=== PATIENT | female | born 1980 | race Two or more races ===

== ENCOUNTER 2024-01-03 10:13 | Inpatient (IN) ==
[2024-01-03 12:06] LABS: Platelet Count 328 K/uL (130-400); White Blood Count 6.92 K/ul (4.8-10.8)
[2024-01-03 12:07] LABS: Mean Corpuscular Hemoglobin 14.5 pg (25.0-34.0); Mean Corpuscular Hgb Conc 25.3 g/dL (32.0-36.0); Mean Corpuscular Volume 57.5 fL (80.0-100.0); Partial Thromboplastin Ratio 0.9; Partial Thromboplastin Time 25 Seconds (21-31); Prothrombin Time 11.3 Seconds (9.0-12.0); RDW Coefficient of Variation 20.7 % (11.5-14.5); RDW Standard Deviation 39.5 fL (36.4-46.3); Red Blood Count 4.75 M/uL (4.20-5.40)
[2024-01-03 12:28] LABS: Albumin Level 4.6 gm/dl (3.4-5.0); Anion Gap 7 (3-11); Bilirubin,Total 0.9 mg/dl (0.2-1.0); Calcium 9.3 mg/dl (8.6-10.3); Carbon Dioxide 23 mmol/L (21-32); Chloride 106 mmol/L (98-107); Potassium 3.5 mmol/L (3.5-5.1); Sodium 136 mmol/L (136-145)
[2024-01-03 12:33] LABS: Anisocytosis Present; Basophils # (auto) 0.05 K/uL (0.00-0.20); Basophils % (auto) 0.7 %; Eosinophils # (auto) 0.06 K/uL (0.00-0.50); Eosinophils % (auto) 0.9 %; Hypochromasia Present; Immature Granulocytes # (auto) 0.03 K/uL (0.01-0.20); Immature Granulocytes % (auto) 0.4 %; Lymphocytes # (auto) 2.14 K/uL (1.20-3.40); Lymphocytes % (auto) 30.9 %; Microcytosis Present; Monocytes # (auto) 0.47 K/uL (0.11-0.59); Monocytes % (auto) 6.8 %; Neutrophils # (auto) 4.17 K/uL (1.40-6.50); Neutrophils % (auto) 60.3 %; Polychromasia 1+; Tear Drop Cells 1+
[2024-01-03 12:34] LABS: Alanine Aminotransferase 52 U/L (7-52); Albumin Globulin Ratio 1.4 (0.9-2); Alkaline Phosphatase 84 U/L (34-104); Aspartate Aminotransferase 38 U/L (13-39); BUN Creatinine Ratio 25.7 (10-20); Blood Urea Nitrogen 9 mg/dl (6-23); Est GFR (African American) > 150.0 ml/min; Est GFR (Non-African American) 135.2 ml/min; Globulin 3.3 gm/dl (2.5-4.0); Glucose 104 mg/dl (70-99(Fasting)); Total Protein 7.9 gm/dl (6.0-8.3)
[2024-01-03 12:37] LABS: Hematocrit (blood only) 27.3 % (37.0-47.0); Hemoglobin 6.9 g/dl (12.0-16.0)
--- NOTE | 2024-01-03 13:57 | Emergency Department Note ---
Impression & Plan Severe anemia ED Provider Note NAME: IDALIA JACKSON AGE: 43 SEX: Female INFORMANT: Patient through the geochemical manager service ED PROVIDER(S): Neo Ellis MD CHIEF COMPLAINT: Anemia PLAN: Disposition: Admitted Outpatient prescription management: none Referral: None MEDICAL DECISION MAKING: Patient presented because of anemia. This was confirmed on laboratory testing here. She denies any active source of bleeding. Hemodynamically she is stable. Patient is in the room needing a blood transfusion. Because of the lower abdominal pain she underwent CT imaging. CT imaging revealed the presence of multiple large fibroids. I suspect that this is the contributing issue. Consultation was made with Dr. Hart of [facility]. She did evaluate the images and will consult on the patient. I did consult with the [facility] hospitalist service. Patient will be evaluated admitted for further management. [facility] did request pelvic ultrasound and this was ordered. I did use a geochemical manager service several times for the encounter including the consent for blood transfusion. All risk and benefits were discussed with the geochemical manager service. Patient was typed and crossed for 2 units of blood. I refer you to the EMR for further details. Care/management discussed with: store loss prevention manager Level of care consideration(s): After review of the information above and other included data, I feel the patient requires escalation of care to admission Triage Nursing notes: reviewed and agree them. Vital Signs: reviewed and remarkable for no significant abnormalities Additional History obtained from: none Chronic Medical/Social Conditions affecting care: none Prior/ Outside/ External records reviewed: none Differential Diagnosis: Anemia, marrow failure, uterine bleeding, diverticulosis, AVM, coagulopathy, colitis, inflammatory bowel disease, malignancy, Elsa-Berg tear, esophagitis, peptic ulcer disease, variceal bleed, gastritis, epistaxis, fissure, hemorrhoids, as well as other pathologies. Diagnostics, independently interpreted by me: ECG: none Cardiac Monitoring: none Medical decision rules: none Imaging studies: CT scan reveals multiple. Uterine masses. I refer you to the EMR for further details. HPI: 43 year old Female arrives for evaluation of anemia. This was found on outpatient labs yesterday and was noted to be hemoglobin of 6. The patient also notes the following associated symptoms, right lower quadrant abdominal pain. The patient has been prescribed no medication for relieving factors. Current pain is rated as 6/10. Pt denies LOC, headache, fevers, chills, diaphoresis, visual changes, neck pain, chest pain, breathing difficulties, nausea, vomiting, heavy vaginal bleeding, nosebleeds, back pain, melena, hematochezia, urinary symptoms, numbness, weakness, lymphadenopathy, rash, or other complaints. PAST MEDICAL HISTORY: See Below, postoperative bleeding after PAST SURGICAL HISTORY: , see below SOCIAL HISTORY: See Below, HOME MEDICATIONS: See Below ALLERGIES: See Below VITALS: See Below PHYSICAL EXAMINATION: GENERAL: Awake, alert, well-appearing, in no distress HENT: Normocephalic, atraumatic. Oropharynx unremarkable. EYES: Pale conjunctiva. Sclera non-icteric. NECK: Inspection normal. Non-tender. Supple. No nuchal rigidity. FROM. No masses. RESPIRATORY: Clear to auscultation. No wheezes. No rales. Normal respiratory effort. CARDIAC: Normal rate. Normal rhythm. No murmurs. No rubs. Extremities warm and well perfused. Pulses equal. No JVD. GI: Soft, non-distended. No tenderness to palpation. No rebound or guarding. No masses. RECTAL: Deferred. MUSCULOSKELETAL: Atraumatic. Chest examination reveals no tenderness. The back is symmetrical on inspection without obvious abnormality. There is no CVA tenderness to palpation. No joint edema. LOWER EXTREMITIES: Calves are equal size bilaterally and non-tender. No edema. No discoloration. NEURO: Normal sensorium. No sensory or motor deficits noted. SKIN: No rash or jaundice noted. PROCEDURES: none CRITICAL CARE: I have personally spent 35 minutes of critical care time in the direct management of this patient. This includes bedside care, interpretation of diagnostic studies, and testing, discussion with consultants, patient, and family members, utilizing geochemical manager services, and other required patient management activities. These minutes are in excess of all separately billable procedures. OBSERVATION NOTE: none Past Med/Surg History Medical History (Updated 01/03/24 @ 15:46 by Nataliia Mccoy PA-C) No pertinent past medical history Surgical History (Updated 01/03/24 @ 15:46 by Nataliia Mccoy PA-C) Hx of hand surgery Hx of section Family History (Updated 01/03/24 @ 15:47 by Nataliia Mccoy PA-C) Mother Hypertension Sister Anemia Social History (Updated 01/03/24 @ 15:45 by Nataliia Mccoy PA-C) Smoking Status: Never smoker Hx Alcohol Use: No Hx Substance Use: No Preferred Language: Omani Communication Tools: IPad marital status: Current Living Situation: Spouse and Family Current Living Situation Comment: lives with 2 children Allergies Allergies Allergy/AdvReac Type Severity Reaction Status Date / Time No Known Allergies Unverified 02/25/10 06:51 Home Meds Home Medications Medication Instructions Recorded Confirmed Multivit/Min/Iron/Fol Ac/Pren 1 tab PO DAILY ##0 02/25/10 ( Vitamin) Ibuprofen (Motrin) 600 mg PO Q6HR ##0 02/28/10 Oxycodone/Acetaminophen (Percocet 1 - 2 tabs PO Q6HR PRN ##0 02/28/10 Unknown Dose) Results & Data (ED) Vital Signs Vital Signs - 24 hr 01/03/24 10:45 01/03/24 12:47 01/03/24 13:19 Temperature 36.5 C Temperature Source Temporal Artery Scan Pulse Rate 84 70 Pulse Rate [Apical] 63 Pulse Rate from SpO2 Sensor 68 Respiratory Rate 20 18 17 Respiratory Effort / Characteristics Non-Labored Spontaneous Non-Labored Spontaneous Respiratory Depth Normal Normal Respiratory Pattern Regular Blood Pressure 105/62 Blood Pressure [Left Arm] 109/73 Blood Pressure Mean 76 Blood Pressure Mean [Left Arm] 85 Blood Pressure Position [Left Arm] Lying Pulse Oximetry 100 100 100 Oxygen Delivery Method Room Air Sepsis Recent Fever Within 48 Hours No Sepsis New/Unexplained Change in Mental Status N/A Sepsis Action Taken by Nursing No Action Required 01/03/24 13:20 01/03/24 13:30 01/03/24 13:30 Temperature Temperature Source Pulse Rate 78 65 Pulse Rate [Apical] Pulse Rate from SpO2 Sensor 75 64 Respiratory Rate 22 18 Respiratory Effort / Characteristics Respiratory Depth Respiratory Pattern Blood Pressure 99/60 L Blood Pressure [Left Arm] Blood Pressure Mean 75 Blood Pressure Mean [Left Arm] Blood Pressure Position [Left Arm] Pulse Oximetry 100 100 Oxygen Delivery Method Sepsis Recent Fever Within 48 Hours Sepsis New/Unexplained Change in Mental Status Sepsis Action Taken by Nursing 01/03/24 13:40 01/03/24 13:50 01/03/24 14:00 Temperature Temperature Source Pulse Rate 62 74 77 Pulse Rate [Apical] Pulse Rate from SpO2 Sensor 64 75 Respiratory Rate 17 28 H Respiratory Effort / Characteristics Respiratory Depth Respiratory Pattern Blood Pressure Blood Pressure [Left Arm] Blood Pressure Mean Blood Pressure Mean [Left Arm] Blood Pressure Position [Left Arm] Pulse Oximetry 100 100 Oxygen Delivery Method Sepsis Recent Fever Within 48 Hours Sepsis New/Unexplained Change in Mental Status Sepsis Action Taken by Nursing 01/03/24 14:00 01/03/24 14:00 01/03/24 14:10 Temperature Temperature Source Pulse Rate 67 99 H Pulse Rate [Apical] Pulse Rate from SpO2 Sensor 68 100 H Respiratory Rate 16 22 Respiratory Effort / Characteristics Respiratory Depth Respiratory Pattern Blood Pressure 101/64 Blood Pressure [Left Arm] Blood Pressure Mean 84 Blood Pressure Mean [Left Arm] Blood Pressure Position [Left Arm] Pulse Oximetry 100 100 Oxygen Delivery Method Sepsis Recent Fever Within 48 Hours Sepsis New/Unexplained Change in Mental Status Sepsis Action Taken by Nursing 01/03/24 14:20 01/03/24 14:30 01/03/24 14:30 Temperature Temperature Source Pulse Rate 85 78 Pulse Rate [Apical] Pulse Rate from SpO2 Sensor 83 81 Respiratory Rate 21 Respiratory Effort / Characteristics Respiratory Depth Respiratory Pattern Blood Pressure 128/82 Blood Pressure [Left Arm] Blood Pressure Mean 92 Blood Pressure Mean [Left Arm] Blood Pressure Position [Left Arm] Pulse Oximetry 100 100 Oxygen Delivery Method Sepsis Recent Fever Within 48 Hours Sepsis New/Unexplained Change in Mental Status Sepsis Action Taken by Nursing 01/03/24 14:49 01/03/24 14:50 01/03/24 15:00 Temperature Temperature Source Pulse Rate 76 77 78 Pulse Rate [Apical] Pulse Rate from SpO2 Sensor Respiratory Rate 16 18 Respiratory Effort / Characteristics Respiratory Depth Respiratory Pattern Blood Pressure Blood Pressure [Left Arm] Blood Pressure Mean Blood Pressure Mean [Left Arm] Blood Pressure Position [Left Arm] Pulse Oximetry Oxygen Delivery Method Sepsis Recent Fever Within 48 Hours Sepsis New/Unexplained Change in Mental Status Sepsis Action Taken by Nursing 01/03/24 15:10 Temperature Temperature Source Pulse Rate 71 Pulse Rate [Apical] Pulse Rate from SpO2 Sensor Respiratory Rate 20 Respiratory Effort / Characteristics Respiratory Depth Respiratory Pattern Blood Pressure Blood Pressure [Left Arm] Blood Pressure Mean Blood Pressure Mean [Left Arm] Blood Pressure Position [Left Arm] Pulse Oximetry Oxygen Delivery Method Sepsis Recent Fever Within 48 Hours Sepsis New/Unexplained Change in Mental Status Sepsis Action Taken by Nursing Laboratory Data 01/03/24 11:20 01/03/24 11:20 Lab Results 01/03/24 01/03/24 01/03/24 Range/Units 11:20 11:29 15:02 WBC 6.92 (4.8-10.8) K/ul RBC 4.75 (4.20-5.40) M/uL Hgb 6.9 L* (12.0-16.0) g/dl Hct 27.3 L (37.0-47.0) % MCV 57.5 L (80.0-100.0) fL MCH 14.5 L (25.0-34.0) pg MCHC 25.3 L (32.0-36.0) g/dL RDW Std Deviation 39.5 (36.4-46.3) fL RDW Coeff of Nahid 20.7 H (11.5-14.5) % Plt Count 328 (130-400) K/uL Immature Gran % (Auto) 0.4 % Neut % (Auto) 60.3 % Lymph % (Auto) 30.9 % [place] % (Auto) 6.8 % Eos % (Auto) 0.9 % Baso % (Auto) 0.7 % Reticulocyte % (Auto) 2.07 H (0.50-2.00) % Neut # (Auto) 4.17 (1.40-6.50) K/uL Lymph # (Auto) 2.14 (1.20-3.40) K/uL [place] # (Auto) 0.47 (0.11-0.59) K/uL Eos # (Auto) 0.06 (0.00-0.50) K/uL Baso # (Auto) 0.05 (0.00-0.20) K/uL Reticulocyte # 0.100 (0.020-0.100) 10^6/uL Immature Gran # (Auto) 0.03 (0.01-0.20) K/uL Polychromasia 1+ Hypochromasia Present Anisocytosis Present Microcytosis Present Tear Drop Cells 1+ PT 11.3 (9.0-12.0) Seconds INR 1.0 (0.9-1.1) APTT 25 (21-31) Seconds PTT Ratio 0.9 Sodium 136 (136-145) mmol/L Potassium 3.5 (3.5-5.1) mmol/L Chloride 106 (98-107) mmol/L Carbon Dioxide 23 (21-32) mmol/L Anion Gap 7 (3-11) BUN 9 (6-23) mg/dl Creatinine 0.35 L (0.6-1.2) mg/dl Est GFR ( Amer) > 150.0 ml/min Est GFR (Non-Af Amer) 135.2 ml/min BUN/Creatinine Ratio 25.7 H (10-20) Glucose 104 H (70-99(Fasting)) mg/dl Calcium 9.3 (8.6-10.3) mg/dl Total Bilirubin 0.9 (0.2-1.0) mg/dl AST 38 (13-39) U/L ALT 52 (7-52) U/L Alkaline Phosphatase 84 (34-104) U/L Total Protein 7.9 (6.0-8.3) gm/dl Albumin 4.6 (3.4-5.0) gm/dl Globulin 3.3 (2.5-4.0) gm/dl Albumin/Globulin Ratio 1.4 (0.9-2) HCG, Qual Negative (Negative) Blood Type O Positive Blood Type Recheck O Positive Antibody Screen NEGATIVE Crossmatch See Detail Administered Medications Discontinued Medications Ioversol (Optiray 320 100ml) 93 ml IV ONCE ONE Stop: 01/03/24 14:46 Last Admin: 01/03/24 14:45 Dose: 93 ml Documented By: LUC Imaging Data Radiologist's Impression: Abdomen/Pelvis CT 01/03/24 14:[address] WITH IV CONTRAST CT DOSE: 583.12 mGy.cm HISTORY: RLQ pain., low hgb TECHNIQUE: Multiaxial CT images of the abdomen and pelvis were performed following the use of intravenous contrast. A dose lowering technique was utilized adhering to the principles of ALARA. COMPARISON STUDY: None. FINDINGS: The lung bases are clear. No pneumoperitoneum. No pneumatosis. No acute fractures. Tiny fat-containing umbilical hernia. The liver, gallbladder, pancreas, spleen, adrenal glands, and right kidney are unremarkable. There is a 4 mm hypodensities within the left kidney. This is technically too small to characterize but favors a cyst. No hydronephrosis. The main portal vein is patent. Normal caliber abdominal aorta. No retroperitoneal hematoma. No abdominal or pelvic lymphadenopathy. The bladder is unremarkable. Bilateral ovarian cysts with the largest on the left measuring 3.5 cm. There are 3 similar-appearing heterogeneous uterine masses. These favor fibroids. Dominant central mass measures 6.6 x 7.0 cm and distorts the endometrium. Therefore, this likely represents a submucosal fibroid. Trace pelvic free fluid. This is likely physiologic. A few colonic diverticula. No evidence for acute diverticulitis. No bowel wall thickening or obstruction. Normal appendix. IMPRESSION: 1. There are 3 similar-appearing heterogeneous uterine masses which favor fibroids. Dominant mass measures 7.0 x 6.6 cm and distorts the endometrium. Therefore, this favors a submucosal fibroid. Follow-up nonemergent gynecologic consultation recommended. 2. No bowel wall thickening or obstruction. 3. Colonic diverticulosis. No evidence for acute diverticulitis. 4. No retroperitoneal hematoma. ACT 112: Negative or not required by law. Electronically signed by: Hammad Cruz M.D. 01/03/2024 3:04 PM Discharge Plan Visit Data Chief Complaint: Referred by Doctor Stated Complaint: BLOOD TRANSFUSION?, DOC REF ED Provider: Neo Ellis Discharge Problem: Severe anemia Forms Stand Alone Forms: My [facility] Referrals Referrals: PCP,NO [Primary Care Provider] -
[2024-01-03 14:27] LABS: Reticulocyte % 2.07 % (0.50-2.00)
[2024-01-03 14:35] LABS: Pregnancy Test, Serum Negative (Negative)
[2024-01-03] MEDS: OPTIRAY 320 100ml IV ONE (14:45)
[2024-01-03] MEDS ORDERED: SODIUM CHLORIDE 0.9% 250 ML IV PRN ×2 (15:05→16:06)
--- NOTE | 2024-01-03 15:05 | CT Scan Report ---
ABDOMEN AND PELVIS CT WITH IV CONTRAST CT DOSE: 583.12 mGy.cm HISTORY: RLQ pain., low hgb TECHNIQUE: Multiaxial CT images of the abdomen and pelvis were performed following the use of intrave nous contrast. A dose lowering technique was utilized adhering to the principles of ALARA. COMPARISON STUDY: None. FINDINGS: The lung bases are clear. No pneumoperitoneum. No pneumatosis. No acute fractures. Tiny fat -containing umbilical hernia. The liver, gallbladder, pancreas, spleen, adrenal glands, and right kid keshav are unremarkable. There is a 4 mm hypodensities within the left kidney. This is technically too s mall to characterize but favors a cyst. No hydronephrosis. The main portal vein is patent. Normal tania iber abdominal aorta. No retroperitoneal hematoma. No abdominal or pelvic lymphadenopathy. The bladde r is unremarkable. Bilateral ovarian cysts with the largest on the left measuring 3.5 cm. There are 3 similar-appearing heterogeneous uterine masses. These favor fibroids. Dominant central mass measures 6.6 x 7.0 cm and distorts the endometrium. Therefore, this likely represents a submucosal fibroid. T race pelvic free fluid. This is likely physiologic. A few colonic diverticula. No evidence for acute diverticulitis. No bowel wall thickening or obstruction. Normal appendix. IMPRESSION: 1. There are 3 similar-appearing heterogeneous uterine masses which favor fibroids. Dominant mass abel sures 7.0 x 6.6 cm and distorts the endometrium. Therefore, this favors a submucosal fibroid. Follow- up nonemergent gynecologic consultation recommended. 2. No bowel wall thickening or obstruction. 3. Colonic diverticulosis. No evidence for acute diverticulitis. 4. No retroperitoneal hematoma. ACT 112: Negative or not required by law. Electronically signed by: Hammad Cruz M.D. 01/03/2024 3:04 PM
--- NOTE | 2024-01-03 15:35 | History & Physical Report ---
Date of Service January 03, 2024 History of Present Illness Primary Care Provider: NO PCP This is a 48 year old female who has no significant past medical history of presents to ED 2/2 referral PCP for low hemoglobin. She is burkinan speaking and education rep services were used. They did blood work as an outpatient and I was sent here because my blood work was low. She had blood work done yesterday. She has been having pain in her RLQ. She has been having this pain for 2-3 months. It comes and goes. Allergies Allergy/AdvReac Type Severity Reaction Status Date / Time No Known Allergies Unverified 02/25/10 06:51 Past Med/Surg History Social History Smoking Status: Never smoker Preferred Language: Nepali Communication Tools: IPad Results & Data Results & Data Vital Signs (Past 12 Hours) Vital Signs Temp Pulse Pulse Resp BP BP Pulse Ox 01/03/24 15:10 71 20 01/03/24 15:00 78 18 01/03/24 14:50 77 01/03/24 14:49 76 16 01/03/24 14:30 128/82 01/03/24 14:30 78 100 01/03/24 14:20 85 21 100 01/03/24 14:10 99 H 22 100 01/03/24 14:00 67 16 100 01/03/24 14:00 101/64 01/03/24 14:00 77 01/03/24 13:50 74 28 H 100 01/03/24 13:40 62 17 100 01/03/24 13:30 99/60 L 01/03/24 13:30 65 18 100 01/03/24 13:20 78 22 100 01/03/24 13:19 70 17 100 01/03/24 12:47 63 18 109/73 100 01/03/24 10:45 36.5 C 84 20 105/62 100 O2 Del Method 01/03/24 15:10 01/03/24 15:00 01/03/24 14:50 01/03/24 14:49 01/03/24 14:30 01/03/24 14:30 01/03/24 14:20 01/03/24 14:10 01/03/24 14:00 01/03/24 14:00 01/03/24 14:00 01/03/24 13:50 01/03/24 13:40 01/03/24 13:30 01/03/24 13:30 01/03/24 13:20 01/03/24 13:19 01/03/24 12:47 Room Air 01/03/24 10:45
--- NOTE | 2024-01-03 16:03 | History & Physical Report ---
Date of Service January 03, 2024 Assessment & Plan (1) Severe anemia: (2) Iron deficiency anemia: Plan: Patricia Do is a 43yo Puerto Rican-speaking F with no significant PMH who presented to the ED via referral by [email or web address] for evaluation of new-on set severe anemia discovered on CBC results, which was performed yesterday by the clinic (Hgb of 6). CBC in ED revealed microcytic, hypochromic severe anemia and tear drop cells. -Order peripheral smear, anemia work-up, ferritin level 2, consider iron transfusion in future. -Transfusion coordinated by Dr. Ellis in the ED; pt typed and crossed for 2 units of blood. -Order fecal occult stool, r/o GI bleed (3) Right lower quadrant abdominal pain: Plan: CT of abdomen/pelvis performed in the ED revealed 3 similar-looking uterine masses, favoring fibroids. Corresponding fibroid discovery on pelvic U/S findings, the largest of which is a 6.9cm left fundal fibroid. No acute hemorrhage noted. -Consult [facility]. ED provider spoke with BELT LACER - Plan is for pt to undergo outpatient robotic procedure for fibroid removal. -Follow urine DVT Prophylaxis: SCDs Code Status: Full Code PCP: None Dispo: Admit to Med/Surg w/ Telemetry Patient seen in collaboration with Dr. Fernandes. Please see addendum. I spent a total of 75 minutes coordinating, documenting, and providing care for this patient excluding time spent in the performance of separately billed services. This included personally reviewing all current laboratories and imaging studies, medical reconciliation, outpatient chart review and discussion with specialists. History of Present Illness Chief Complaint: Severe Anemia Primary Care Provider: NO PCP Patricia Do is a 43yo [place] Rican-speaking F with no significant PMH who presented to the ED via referral by [facility] for evaluation of new- onset severe anemia discovered on CBC results, which was performed yesterday by the clinic (Hgb of 6). History obtained from the patient, who is accompanied by her , and available records in [facility]; utility forester was utilized for the entire gathering of information. Patient states that she was called and instructed to report to the ED today since her Hgb result from the clinic was significantly low, thus warranting further investigation. Patient reports that she has been experiencing pain in her lower right abdominal quadrant for the past approximately 2-3 months. Patient reports that the pain is fleeting, and tends to come and go in waves. She describes the pain in her lower right abdominal quadrant as more of a dull sensation typically, but has experienced t imes when the pain tends to become sharp in intensity whilst urinating. Patient states that she does not feel this specific abdominal pain every time she urinates, only once in a while it will occur. Patient denies any hematuria, burning sensation whilst urinating or changes in urinary habits. Patient did allude to pain in her right flank region that also occurs intermittently, sometimes occurring the same time as the lower right quadrant abdominal pain. Patient describes the flank pain as dull/achy in quality. Patient denies being prescribed any medications to alleviate either sources of pain. She does report occasional nausea and constipation, but denies taking any OTC or prescription medications for these concerns at home. Patient denies any episodes of vomiting, diarrhea, or hematochezia. Patient reports that she is currently not taking any forms of hormonal control, and denies any significant changes in the flow/frequency of her menstrual cycles. Patient reports using approximately 10- 12 pads/day when she is menstruating; however, she denies any abnormal vaginal bleeding or any active source of bleeding at this time. Patient denies any fevers, body chills/aches, recent illnesses, generalized weakness and fatigue. Allergies Allergy/AdvReac Type Severity Reaction Status Date / Time No Known Allergies Unverified 01/03/24 16:51 Home Medications Medication Instructions Recorded Confirmed Type ascorbic acid (vitamin C) 250 mg 0 mg PO DAILY 01/03/24 01/03/24 History tablet (Vitamin C) Past Med/Surg History Medical History No pertinent past medical history Surgical History Hx of hand surgery Hx of section Family History Mother Hypertension Sister Anemia Social History Smoking Status: Never smoker Hx Alcohol Use: No Hx Substance Use: No Preferred Language: Puerto Rican Communication Tools: IPad marital status: Current Living Situation: Spouse and Family Current Living Situation Comment: lives with 2 children Review of Systems Review of Systems: At least ten systems reviewed and negative, except as noted in the HPI. Physical Exam Physical Exam: General Appearance: WD/WN, vitals as above, NAD, sitting up in bed, pleasant, conversing easily with assistance of utility forester. Head: Normocephalic, atraumatic Eyes: Normal inspection, PERRL, conjunctivae normal, anicteric sclerae ENT: External ear and nose normal, oropharynx normal Neck: Normal visual inspection, trachea midline, no thyromegaly Respiratory: Normal respiratory effort, lungs clear to auscultation, no wheeze, rales, rhonchi. No accessory muscle use. Cardiovascular: Regular rate, rhythm, no murmur, normal peripheral pulses, no BLE edema. Vessels: No JVD Chest: Normal inspection of chest Abdomen/GI: Normal bowel sounds, soft, nontender, no hepatosplenomegaly Extremities/Musculoskeletal: No cyanosis or clubbing, extremities motor strength 5/5 Neurologic: PERRL, EOMI, accommodation nl, no face palsy, no dysarthria, CN's II-XI intact bilaterally and moves all extremities Psychiatric: A+Ox3, euthymic affect Skin: No rashes, normal color, warm/dry Results & Data Results & Data Vital Signs (Past 12 Hours) Vital Signs Temp Pulse Pulse Resp BP BP Pulse Ox 01/03/24 15:10 71 20 01/03/24 15:00 78 18 01/03/24 14:50 77 01/03/24 14:49 76 16 01/03/24 14:30 128/82 01/03/24 14:30 78 100 01/03/24 14:20 85 21 100 01/03/24 14:10 99 H 22 100 01/03/24 14:00 67 16 100 01/03/24 14:00 101/64 01/03/24 14:00 77 01/03/24 13:50 74 28 H 100 01/03/24 13:40 62 17 100 01/03/24 13:30 99/60 L 01/03/24 13:30 65 18 100 01/03/24 13:20 78 22 100 01/03/24 13:19 70 17 100 01/03/24 12:47 63 18 109/73 100 01/03/24 10:45 36.5 C 84 20 105/62 100 O2 Del Method 01/03/24 15:10 01/03/24 15:00 01/03/24 14:50 01/03/24 14:49 01/03/24 14:30 01/03/24 14:30 01/03/24 14:20 01/03/24 14:10 01/03/24 14:00 01/03/24 14:00 01/03/24 14:00 01/03/24 13:50 01/03/24 13:40 01/03/24 13:30 01/03/24 13:30 01/03/24 13:20 01/03/24 13:19 01/03/24 12:47 Room Air 01/03/24 10:45 Laboratory Results Short CBC 01/03/24 Range/Units 11:20 WBC 6.92 (4.8-10.8) K/ul Hgb 6.9 L* (12.0-16.0) g/dl Hct 27.3 L (37.0-47.0) % Plt Count 328 (130-400) K/uL BMP 01/03/24 11:20 Sodium 136 Potassium 3.5 Chloride 106 Carbon Dioxide 23 BUN 9 Creatinine 0.35 L Glucose 104 H Calcium 9.3 Liver Function 01/03/24 Range/Units 11:20 Total Bilirubin 0.9 (0.2-1.0) mg/dl AST 38 (13-39) U/L ALT 52 (7-52) U/L Alkaline Phosphatase 84 (34-104) U/L Albumin 4.6 (3.4-5.0) gm/dl Diagnostic Findings Abdomen/Pelvis CT 01/03/24 14:[address] WITH IV CONTRAST CT DOSE: 583.12 mGy.cm HISTORY: RLQ pain., low hgb TECHNIQUE: Multiaxial CT images of the abdomen and pelvis were performed following the use of intravenous contrast. A dose lowering technique was utilized adhering to the principles of ALARA. COMPARISON STUDY: None. FINDINGS: The lung bases are clear. No pneumoperitoneum. No pneumatosis. No acute fractures. Tiny fat-containing umbilical hernia. The liver, gallbladder, pancreas, spleen, adrenal glands, and right kidney are unremarkable. There is a 4 mm hypodensities within the left kidney. This is technically too small to characterize but favors a cyst. No hydronephrosis. The main portal vein is patent. Normal caliber abdominal aorta. No retroperitoneal hematoma. No abdominal or pelvic lymphadenopathy. The bladder is unremarkable. Bilateral ovarian cysts with the largest on the left measuring 3.5 cm. There are 3 similar-appearing heterogeneous uterine masses. These favor fibroids. Dominant central mass measures 6.6 x 7.0 cm and distorts the endometrium. Therefore, this likely represents a submucosal fibroid. Trace pelvic free fluid. This is likely physiologic. A few colonic diverticula. No evidence for acute diverticulitis. No bowel wall thickening or obstruction. Normal appendix. IMPRESSION: 1. There are 3 similar-appearing heterogeneous uterine masses which favor fibroids. Dominant mass measures 7.0 x 6.6 cm and distorts the endometrium. Therefore, this favors a submucosal fibroid. Follow-up nonemergent gynecologic consultation recommended. 2. No bowel wall thickening or obstruction. 3. Colonic diverticulosis. No evidence for acute diverticulitis. 4. No retroperitoneal hematoma. ACT 112: Negative or not required by law. Electronically signed by: Hammad Cruz M.D. 01/03/2024 3:04 PM Pelvis Ultrasound 01/03/24 15:06 PELVIC ULTRASOUND CLINICAL HISTORY: Uterine mass. COMPARISON STUDY: CT of the abdomen and pelvis performed earlier today. TECHNIQUE: Transabdominal sonography of the pelvis was performed. Transvaginal imaging was deferred. FINDINGS: Uterus is enlarged, measuring 11.3 x 8 x 8.6 cm. Several uterine lesions are noted, the largest of which is a left fundal lesion that measures 6.9 x 5.5 x 6.8 cm. Additional smaller fibroid measures 3 x 2.6 x 1.8 cm. The endometrium is distorted by the fibroids and therefore endometrial thickness is difficult to measure. No free fluid was identified. Color flow is identified within the ovaries. The right ovary measures 3 x 1.7 x 2.8 cm and the left ovary measures 4.6 x 2.2 x 3.7 cm although the left ovary was partially obscured. There is a 3.1 cm left ovarian cyst. IMPRESSION: 1. Several fibroids, the largest of which is a 6.9 cm left fundal fibroid, likely submucosal. 2. 3.1 cm left ovarian cyst. 3. No sonographic evidence for ovarian torsion. ACT 112: Negative or not required by law. Electronically signed by: Grupo Palacio M.D. 01/03/2024 5:09 PM Medications Administered Discontinued Medications Ioversol (Optiray 320 100ml) 93 ml IV ONCE ONE Stop: 01/03/24 14:46 Last Admin: 01/03/24 14:45 Dose: 93 ml Documented By: PLW COVID-19 Results Results COVID-19 Adm Lab Results: RBC 4.75 M/uL (4.20-5.40) 01/03/24 WBC 6.92 K/ul (4.8-10.8) 01/03/24 Hgb 6.9 g/dl (12.0-16.0) L* 01/03/24 Hct 27.3 % (37.0-47.0) L 01/03/24 Plt Count 328 K/uL (130-400) 01/03/24 Neutrophils (%) (Auto) 60.3 % 01/03/24 Lymphocytes (%) (Auto) 30.9 % 01/03/24 Monocytes # (Auto) 0.47 K/uL (0.11-0.59) 01/03/24 Eosinophils # (Auto) 0.06 K/uL (0.00-0.50) 01/03/24 Immature Granulocyte % (Auto) 0.4 % 01/03/24 Neutrophils # (Auto) 4.17 K/uL (1.40-6.50) 01/03/24 Lymphocytes # (Auto) 2.14 K/uL (1.20-3.40) 01/03/24 Monocytes # (Auto) 0.47 K/uL (0.11-0.59) 01/03/24 Eosinophils # (Auto) 0.06 K/uL (0.00-0.50) 01/03/24 Basophils # (Auto) 0.05 K/uL (0.00-0.20) 01/03/24 Immature Granulocyte # (Auto) 0.03 K/uL (0.01-0.20) 4 Polychromasia 1+ 01/03/24 Hypochromasia Present 01/03/24 Anisocytosis Present 01/03/24 Microcytosis Present 01/03/24 Tear Drop Cells 1+ 01/03/24 Na 136 mmol/L (136-145) 01/03/24 K 3.5 mmol/L (3.5-5.1) 01/03/24 Cl 106 mmol/L (98-107) 01/03/24 CO2 23 mmol/L (21-32) 01/03/24 Anion Gap 7 (3-11) 01/03/24 BUN 9 mg/dl (6-23) 01/03/24 Creatinine 0.35 mg/dl (0.6-1.2) L 01/03/24 BUN/Creatinine Ratio 25.7 (10-20) H 01/03/24 Glucose Level 104 mg/dl (70-99(Fasting)) H 01/03/24 Ca 9.3 mg/dl (8.6-10.3) 01/03/24 Total Bilirubin 0.9 mg/dl (0.2-1.0) 01/03/24 AST/SGOT 38 U/L (13-39) 01/03/24 ALT/SGPT 52 U/L (7-52) 01/03/24 Alkaline Phosphatase 84 U/L (34-104) 01/03/24 Total Protein 7.9 gm/dl (6.0-8.3) 01/03/24 Albumin 4.6 gm/dl (3.4-5.0) 01/03/24 Globulin 3.3 gm/dl (2.5-4.0) 01/03/24 Albumin/Globulin Ratio 1.4 (0.9-2) 01/03/24 Ferritin 2.0 ng/ml (8-388) L 01/03/24 PTT 25 Seconds (21-31) 01/03/24 INR 1.0 (0.9-1.1) 01/03/24 Code Status & VTE Plan Code Status FULL CODE VTE Prophylaxis Plan VTE Prophylaxis will be ordered: Yes Supervising Physician Co-Signing Physician Notes Pt was seen and examined by myself, Gretchen Fernandes MD on the day of service. Care was coordinated with Adore Odell PA-C. 43yoF presenting with Hgb of ~6, asymptomatic. Denies SOB, dizziness, chest pain or palpitations. Notes Hx of heavy menstrual bleeding with use of 10-12 pads a day. On exam alert and oriented, no acute distress Breath sounds clear bilaterally Murmur appreciated Abd soft, nontender CT abd/pelvis noting fibroids in her uterus. BELT L[facility]ER consulted, appreciate recs Transfuse 2U pRBCs Trend H/H and transfuse as needed Echo for noted murmur Otherwise as above. I spent a total [id number] coordinating, documenting, and providing care for this patient excluding time spent in the performance of separately billed services (2) Iron deficiency anemia Iron deficiency anemia type: chronic blood loss Qualified Code(s): D50.0 - Iron deficiency anemia secondary to blood loss (chronic)
[2024-01-03 16:21] LABS: Folate (Folic Acid),Ser orPlas 20.04 ng/ml (>5.38)
[2024-01-03 16:57] LABS: Iron 12 mcg/dl (35-150); Transferrin 464 mg/dl (200-360)
--- NOTE | 2024-01-03 17:11 | Ultrasound Report ---
PELVIC ULTRASOUND CLINICAL HISTORY: Uterine mass. COMPARISON STUDY: CT of the abdomen and pelvis performed earlier today. TECHNIQUE: Transabdominal sonography of the pelvis was performed. Transvaginal imaging was deferred. FINDINGS: Uterus is enlarged, measuring 11.3 x 8 x 8.6 cm. Several uterine lesions are noted, the lar gest of which is a left fundal lesion that measures 6.9 x 5.5 x 6.8 cm. Additional smaller fibroid me asures 3 x 2.6 x 1.8 cm. The endometrium is distorted by the fibroids and therefore endometrial thick ness is difficult to measure. No free fluid was identified. Color flow is identified within the ovari es. The right ovary measures 3 x 1.7 x 2.8 cm and the left ovary measures 4.6 x 2.2 x 3.7 cm although the left ovary was partially obscured. There is a 3.1 cm left ovarian cyst. IMPRESSION: 1. Several fibroids, the largest of which is a 6.9 cm left fundal fibroid, likely submucosal. 2. 3.1 cm left ovarian cyst. 3. No sonographic evidence for ovarian torsion. ACT 112: Negative or not required by law. Electronically signed by: Grupo Palacio M.D. 01/03/2024 5:09 PM
[2024-01-03] MEDS ORDERED: ALUMINUM/MAGNESIUM SUSP 30 ML UDC PO PRN (17:21)
[2024-01-03] MEDS ORDERED: ONDANSETRON INJ 2 MG/ML 2 ML VIAL IV PRN (17:21)
[2024-01-03] MEDS ORDERED: ACETAMINOPHEN 325 MG TAB PO PRN (17:21)
--- NOTE | 2024-01-03 20:58 | OB/GYN Consultation ---
Date of Consultation January 03, 2024 Assessment & Plan (1) Fibroid uterus: I reviewed findings of ultrasound and CT scan with patient. Discussed fibroids. She will need outpatient followup to review options for nonemergent fibroid management and for routine gynecologic care. I messaged [facility] office to con jocelynt patient (and also provided phone number for her Jameel if she cannot be contacted) for outpatient followup. Please contact [facility] on-call if there are any questions or concerns during her ho spitalization. History of Present Illness Reason for Consultation: anemia, fibroid uterus Requesting Physician: Dr Ellis/Dr Fernandes Attending Physician: Gretchen Fernandes MD History of Present Illness 43yo presented to ER today at the direction of her doctor at [facility], after labs yesterday showed Hgb/Hct 6.6/26.2. She describes low pelvic pain, worst on lower right side, ongoing for the past 20 years or so - but worsening over the past many months. She is having monthly periods lasting 6-7 days, heavier for day or two (states she is filling about 5- 6 pads per day at heaviest), then decreases to analytical data scientist bleeding. Earlier this month, LMP seemed a bit heavier than normal, but she thought her periods were otherwise normal. She is not currently bleeding at all. Last gynecology visit was 13 years ago with the of her younger child. Has not been on control, and did not feel like she needed to see a doctor for her periods. History of section x 2, with her first delivery she had internal bleeding and required a blood transfusion at that time. No other history of gynecologic problems. Medical coat operator insulator used for entire visit. Allergies Allergy/AdvReac Type Severity Reaction Status Date / Time No Known Allergies Unverified 01/03/24 16:51 Home Medications Medication Instructions Recorded Confirmed Type ascorbic acid (vitamin C) 250 mg 0 mg PO DAILY 01/03/24 01/03/24 History tablet (Vitamin C) Patient History Medical History No pertinent past medical history Surgical History Hx of hand surgery Hx of section Family History Mother Hypertension Sister Anemia Social History Smoking Status: Never smoker Hx Alcohol Use: No Hx Substance Use: No Preferred Language: Cape Verdean Communication Ability: Effective Communication Tools: IPad Injection Molding Operator Required: Yes Beliefs That Will Affect Care: None marital status: Current Living Situation: Spouse Current Living Situation Comment: lives with 2 children Feels Safe at Home: Yes Safety Concerns: Feels Safe At This Time Physical Exam Physical Exam: Gen: AAOx3 NAD. Sitting in bed, talking. Abd: soft, NTTP, points to RLQ pain, palpable 16w uterus. Ext: no edema Results & Data Vital Signs (Past 12 Hours) Vital Signs Temp Pulse Pulse Resp BP BP Pulse Ox 01/03/24 20:30 37.3 C 94 H 15 122/79 100 01/03/24 20:00 37 C 74 15 107/72 100 01/03/24 19:45 103/69 01/03/24 19:45 37 C 64 15 103/69 100 01/03/24 19:44 73 17 99 01/03/24 19:40 75 18 98 01/03/24 19:31 37.0 C 74 20 110/73 99 01/03/24 19:30 72 20 98 01/03/24 19:30 110/73 01/03/24 19:30 37.0 C 73 20 110/73 99 01/03/24 19:23 37 C 71 15 102/67 100 01/03/24 19:20 73 18 98 01/03/24 19:15 70 17 99 01/03/24 19:15 102/67 01/03/24 19:10 80 15 98 01/03/24 19:00 71 20 99 01/03/24 19:00 110/63 01/03/24 18:55 37 C 75 15 106/65 100 01/03/24 18:50 79 22 100 01/03/24 18:45 85 22 99 01/03/24 18:45 106/65 01/03/24 18:40 86 100 01/03/24 18:30 77 20 99 01/03/24 18:30 110/66 01/03/24 18:20 82 18 99 01/03/24 18:15 76 19 97 01/03/24 18:15 115/71 01/03/24 18:10 82 20 99 01/03/24 18:04 15 01/03/24 18:04 01/03/24 18:00 79 15 100 01/03/24 18:00 110/67 01/03/24 17:55 37.3 C 88 15 110/78 100 01/03/24 17:50 61 24 100 01/03/24 17:45 66 12 100 01/03/24 17:45 106/53 L 01/03/24 17:40 70 17 100 01/03/24 17:30 114/56 L 01/03/24 17:30 62 16 100 01/03/24 17:25 36.9 C 62 15 114/56 L 100 01/03/24 17:25 37.3 C 76 15 110/67 100 01/03/24 17:20 75 22 100 01/03/24 17:20 61 01/03/24 17:15 62 13 100 01/03/24 17:15 105/61 01/03/24 17:10 65 13 100 01/03/24 17:10 36.9 C 70 15 109/70 100 01/03/24 17:00 71 14 100 01/03/24 17:00 109/70 01/03/24 16:55 37 C 62 15 111/74 100 01/03/24 16:52 67 19 99 01/03/24 16:52 111/74 01/03/24 16:51 75 20 01/03/24 15:50 71 16 01/03/24 15:40 77 18 01/03/24 15:30 81 19 01/03/24 15:20 91 H 14 01/03/24 15:10 71 20 01/03/24 15:00 78 18 01/03/24 14:50 77 01/03/24 14:49 76 16 01/03/24 14:30 128/82 01/03/24 14:30 78 100 01/03/24 14:20 85 21 100 01/03/24 14:10 99 H 22 100 01/03/24 14:00 67 16 100 01/03/24 14:00 101/64 01/03/24 14:00 77 01/03/24 13:50 74 28 H 100 04/25/24 13:40 62 17 100 01/03/24 13:30 99/60 L 01/03/24 13:30 65 18 100 01/03/24 13:20 78 22 100 01/03/24 13:19 70 17 100 01/03/24 12:47 63 18 109/73 100 01/03/24 10:45 36.5 C 84 20 105/62 100 Pulse Ox O2 Del Method O2 Del Method 01/03/24 20:30 01/03/24 20:00 01/03/24 19:45 01/03/24 19:45 01/03/24 19:44 01/03/24 19:40 01/03/24 19:31 01/03/24 19:30 01/03/24 19:30 01/03/24 19:30 01/03/24 19:23 01/03/24 19:20 01/03/24 19:15 01/03/24 19:15 01/03/24 19:10 01/03/24 19:00 01/03/24 19:00 01/03/24 18:55 01/03/24 18:50 01/03/24 18:45 01/03/24 18:45 01/03/24 18:40 01/03/24 18:30 01/03/24 18:30 01/03/24 18:20 01/03/24 18:15 01/03/24 18:15 01/03/24 18:10 01/03/24 18:04 01/03/24 18:04 100 Room Air 01/03/24 18:00 01/03/24 18:00 01/03/24 17:55 01/03/24 17:50 01/03/24 17:45 01/03/24 17:45 01/03/24 17:40 01/03/24 17:30 01/03/24 17:30 01/03/24 17:25 01/03/24 17:25 01/03/24 17:20 01/03/24 17:20 01/03/24 17:15 01/03/24 17:15 01/03/24 17:10 01/03/24 17:10 01/03/24 17:00 01/03/24 17:00 01/03/24 16:55 01/03/24 16:52 01/03/24 16:52 01/03/24 16:51 01/03/24 15:50 01/03/24 15:40 01/03/24 15:30 01/03/24 15:20 01/03/24 15:10 01/03/24 15:00 01/03/24 14:50 01/03/24 14:49 01/03/24 14:30 01/03/24 14:30 01/03/24 14:20 01/03/24 14:10 01/03/24 14:00 01/03/24 14:00 01/03/24 14:00 01/03/24 13:50 01/03/24 13:40 01/03/24 13:30 01/03/24 13:30 01/03/24 13:20 01/03/24 13:19 01/03/24 12:47 Room Air 01/03/24 10:45 PG Care Time/CCT Total # of Minutes Spent Total Time Spent with Patient: Total time spent is greater than 50% in coordination of care (as documented) at patient's floor/unit and/or counseling patient: Coding Level of Care Code 55611 OFFICE CONSULT LVL M Diagnoses Fibroid uterus D25.9
[2024-01-04 08:50] LABS: Alanine Aminotransferase 39 U/L (7-52); Albumin Globulin Ratio 1.4 (0.9-2); Albumin Level 4.2 gm/dl (3.4-5.0); Alkaline Phosphatase 72 U/L (34-104); Anion Gap 6 (3-11); Aspartate Aminotransferase 27 U/L (13-39); BUN Creatinine Ratio 21.6 (10-20); Bilirubin,Total 1.5 mg/dl (0.2-1.0); Blood Urea Nitrogen 8 mg/dl (6-23); Calcium 8.7 mg/dl (8.6-10.3); Carbon Dioxide 23 mmol/L (21-32); Chloride 107 mmol/L (98-107); Creatinine Clr Calc Pharmacy 158.5 ml/min; Est GFR (African American) > 150.0 ml/min; Est GFR (Non-African American) 132.7 ml/min; Globulin 3.1 gm/dl (2.5-4.0); Glucose 101 mg/dl (70-99(Fasting)); Potassium 3.6 mmol/L (3.5-5.1); Sodium 136 mmol/L (136-145); Total Protein 7.3 gm/dl (6.0-8.3)
[2024-01-04 08:57] LABS: Hematocrit (blood only) 32.1 % (37.0-47.0); Hemoglobin 8.9 g/dl (12.0-16.0); Mean Corpuscular Hemoglobin 16.7 pg (25.0-34.0); Mean Corpuscular Hgb Conc 27.7 g/dL (32.0-36.0); Mean Corpuscular Volume 60.1 fL (80.0-100.0); Platelet Count 289 K/uL (130-400); RDW Coefficient of Variation 23.5 % (11.5-14.5); RDW Standard Deviation 46.4 fL (36.4-46.3); Red Blood Count 5.34 M/uL (4.20-5.40); White Blood Count 7.84 K/ul (4.8-10.8)
[2024-01-04 08:58] LABS: Anisocytosis Present; Basophils # (auto) 0.06 K/uL (0.00-0.20); Basophils % (auto) 0.8 %; Eosinophils # (auto) 0.13 K/uL (0.00-0.50); Eosinophils % (auto) 1.7 %; Hypochromasia Present; Immature Granulocytes # (auto) 0.03 K/uL (0.01-0.20); Immature Granulocytes % (auto) 0.4 %; Lymphocytes # (auto) 2.23 K/uL (1.20-3.40); Lymphocytes % (auto) 28.4 %; Microcytosis Present; Monocytes # (auto) 0.66 K/uL (0.11-0.59); Monocytes % (auto) 8.4 %; Neutrophils # (auto) 4.73 K/uL (1.40-6.50); Neutrophils % (auto) 60.3 %; Polychromasia 1+
[2024-01-04] MEDS: IRON SUCROSE 300 MG in SODIUM CHLORIDE 0.9% 250 ML IV SCH (09:39)
[2024-01-04 10:11] LABS: Estimated Average Glucose 103 mg/dl; Hemoglobin A1C 5.2 % (4.5-5.6)
[2024-01-04] MEDS: MAGNESIUM SULFATE / D5W 1 GM/100 ML BAG IV SCH (11:23)
--- NOTE | 2024-01-04 11:33 | Oncology Consultation ---
Date of Consultation January 04, 2024 Assessment & Plan (1) Iron deficiency anemia: (2) Right lower quadrant abdominal pain: (3) Severe anemia: Plan Severe microcytic anemia likely from iron deficiency due to menorrhagia. ferritin of 2, iron saturation of 12 and transferrin saturation of 464. B12 normal . She is s/p 2 units PRBC transfusion -Agree with IV iron sucrose 300mg daily x 3 doses. Discharge home on oral iron 325mg po daily -Ultimately needs management of menorrhagia so will need to follow up with [facility]. -Follow up with hematology outpatient History of Present Illness Reason for Consultation: Severe anemia Attending Physician: Homa Srivastava MD History of Present Illness 43 year old female who presented with severe symptomatic anemia with H/H of 6.6/ 26.2 due to severe menorrhagia. Abdominal US and CT scan revealed multiple fibroids. [facility] recommended outpatient management. She received 2 units PRBC and IV venofer was started today. Allergies Allergy/AdvReac Type Severity Reaction Status Date / Time No Known Allergies Unverified 01/03/24 16:51 Home Medications Medication Instructions Recorded Confirmed Type ascorbic acid (vitamin C) 250 mg 0 mg PO DAILY 01/03/24 01/03/24 History tablet (Vitamin C) Patient History Medical History No pertinent past medical history Surgical History Hx of hand surgery Hx of section Family History Mother Hypertension Sister Anemia Social History Smoking Status: Never smoker Hx Alcohol Use: No Hx Substance Use: No Preferred Language: Lao Communication Ability: Effective Communication Tools: IPad Field Adjuster Required: Yes Beliefs That Will Affect Care: None marital status: Current Living Situation: Spouse Current Living Situation Comment: lives with 2 children Feels Safe at Home: Yes Results & Data Vital Signs (Past 12 Hours) Vital Signs Temp Pulse Pulse Resp BP Pulse Ox O2 Del Method 01/04/24 08:05 37.3 C 70 16 96/63 L 100 Room Air 01/04/24 08:00 Room Air 01/04/24 07:00 78 01/04/24 02:37 36.9 C 77 18 112/70 99 Room Air (1) Iron deficiency anemia Iron deficiency anemia type: chronic blood loss Qualified Code(s): D50.0 - Iron deficiency anemia secondary to blood loss (chronic)
--- NOTE | 2024-01-04 16:27 | Hospitalist Progress Note ---
Date of Service January 04, 2024 Assessment & Plan (1) Severe anemia: (2) Iron deficiency anemia: (3) Right lower quadrant abdominal pain: Plan Ms. Do is a 43 year old woman with no medical history admitted for acute anemia though to be secondary to menorrhagia due to fibroids. OP labs notable for hgb of 6, which was confirmed on admission labs with a hgb 6.9 Patient underwent transfusion in ED with hgb up to 8.9. Anemia studies revealed severe iron deficiency anemia #Severe microcytic anemia, likely from iron deficiency #Acute blood loss anemia 2/[address] of abdomen/pelvis performed in the ED revealed 3 similar-looking uterine masses, favoring fibroids. 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 Repeat CBC in am DVT Prophylaxis: SCDs Code Status: Full Code PCP: None Dispo: Admit to Med/Surg w/ Telemetry Admission and Anticipated Discharge Date Admission Date: January 03, 2024 Subjective NAEO Patient evaluated at bedside, use of ipad interepreter service Reports history of heavy and painful periods routinely Physical Exam Constitutional: WD/WN, vitals as above Respiratory: normal respiratory effort, lungs clear to auscultation Cardiovascular: RRR, no murmur, no edema Gastrointestinal (Abdomen): normal bowel sounds, soft, nontender, no hepatosplenomegaly Results & Data Results & Data Vital Signs (Past 12 Hours) Vital Signs Temp Pulse Pulse Resp BP Pulse Ox O2 Del Method 01/04/24 16:20 37.0 C 59 L 16 92/64 L 98 Room Air 01/04/24 15:05 74 01/04/24 11:48 36.8 C 64 16 101/67 97 Room Air 01/04/24 08:05 37.3 C 70 16 96/63 L 100 Room Air 01/04/24 08:00 Room Air 01/04/24 07:00 78 Laboratory Results Short CBC 01/04/24 Range/Units 08:04 WBC 7.84 (4.8-10.8) K/ul Hgb 8.9 L (12.0-16.0) g/dl Hct 32.1 L (37.0-47.0) % Plt Count 289 (130-400) K/uL BMP 01/04/24 08:04 Sodium 136 Potassium 3.6 Chloride 107 Carbon Dioxide 23 BUN 8 Creatinine 0.37 L Glucose 101 H Calcium 8.7 Liver Function 01/04/24 Range/Units 08:04 Total Bilirubin 1.5 H D (0.2-1.0) mg/dl AST 27 (13-39) U/L ALT 39 (7-52) U/L Alkaline Phosphatase 72 (34-104) U/L Albumin 4.2 (3.4-5.0) gm/dl Medications Administered Home Medications Medication Instructions Recorded Confirmed Last Taken ascorbic acid (vitamin C) 250 mg 0 mg PO DAILY 01/03/24 01/03/24 Unknown tablet (Vitamin C) Active Medications Generic Name Dose Route Start Last Admin Trade Name Yasmanyq PRN Reason Stop Dose Admin Iron Sucrose 300 mg/ Sodium 265 mls @ 176.667 mls/hr 01/04/24 09:15 01/04/24 11:21 Chloride IV 01/07/24 09:14 Infused DAILY ZOEY Infusion (2) Iron deficiency anemia Iron deficiency anemia type: chronic blood loss Qualified Code(s): D50.0 - Iron deficiency anemia secondary to blood loss (chronic)
[2024-01-04 21:49] LABS: Appearance Urine Clear (Clear); Bilirubin Urine Negative (Negative); Blood Urine Negative (Negative); Color Urine Yellow; Glucose Urine UA Negative (Negative); Ketones Urine Negative (Negative); Leukocyte Esterase Urine Negative (Negative); Nitrite Urine Negative (Negative); Protein Urine Negative (Negative); Specific Gravity Urine 1.006 (1.000-1.030); Urobilinogen Urine Negative (Negative)
[2024-01-05 06:43] LABS: Hematocrit (blood only) 37.2 % (37.0-47.0); Mean Corpuscular Hemoglobin 16.5 pg (25.0-34.0); Mean Corpuscular Hgb Conc 26.9 g/dL (32.0-36.0); Mean Corpuscular Volume 61.3 fL (80.0-100.0); Nucleated RBC # (auto) 0.02 K/uL (0.00-0.12); Nucleated RBC % (auto) 0.2 %; Platelet Count 325 K/uL (130-400); RDW Coefficient of Variation 25.1 % (11.5-14.5); RDW Standard Deviation 48.2 fL (36.4-46.3); Red Blood Count 6.07 M/uL (4.20-5.40); White Blood Count 10.73 K/ul (4.8-10.8)
[2024-01-05 07:06] LABS: Calcium 8.9 mg/dl (8.6-10.3); Creatinine Clr Calc Pharmacy 130.8 ml/min; Est GFR (African American) 144.2 ml/min; Est GFR (Non-African American) 124.5 ml/min; Potassium 3.5 mmol/L (3.5-5.1)
--- NOTE | 2024-01-05 09:55 | Hospitalist Progress Note ---
Date of Service January 05, 2024 Assessment & Plan (1) Severe anemia: (2) Iron deficiency anemia: (3) Right lower quadrant abdominal pain: Plan Ms. Do is a 43 year old woman with no medical history admitted for acute anemia though to be secondary to menorrhagia due to fibroids. OP labs notable for hgb of 6, which was confirmed on admission labs with a hgb 6.9 Patient underwent transfusion in ED with hgb up to 8.9 on 01/03--now improving to 10 this morning. Anemia studies revealed severe iron deficiency anemia, patient on 2/3 iron infusions and will discharge home on oral iron tomorrow #Severe microcytic anemia, likely from iron deficiency #Acute blood loss anemia 2/[address] of abdomen/pelvis performed in the ED revealed 3 similar-looking uterine masses, favoring fibroids. s/p 2 u PRBC in ed Iron labs with ferritin 2, iron sat 12, B12 notmal -Continu IV venofer 300mg x 3 Heme/Onc consult for further optimization -Agree with iron, will discharge on po iron with planned CUSTOMER EXPERIENCE INTERN follow up Repeat CBC in am DVT Prophylaxis: SCDs Code Status: Full Code PCP: None Dispo: Admit to Med/Surg w/ Telemetry Admission and Anticipated Discharge Date Admission Date: January 03, 2024 Subjective NAEO Patient evaluated at bedside, use of ipad on site nurse service Patient reports feeling good this morning. Denies any acute concerns, tolerating iron infusions Physical Exam Constitutional: WD/WN, vitals as above Respiratory: normal respiratory effort, lungs clear to auscultation Cardiovascular: RRR, no murmur, no edema Gastrointestinal (Abdomen): normal bowel sounds, soft, nontender, no hepatosplenomegaly Results & Data Results & Data Vital Signs (Past 12 Hours) Vital Signs Temp Pulse Pulse Resp BP BP Pulse Ox 01/05/24 07:37 36.8 C 67 16 108/69 98 01/05/24 07:06 63 01/05/24 03:40 36.4 C L 57 L 18 102/58 L 97 01/04/24 23:39 36.6 C 61 16 97/60 L 99 01/04/24 21:59 63 O2 Del Method 01/05/24 07:37 Room Air 01/05/24 07:06 01/05/24 03:40 Room Air 01/04/24 23:39 Room Air 01/04/24 21:59 Laboratory Results Short CBC 01/05/24 Range/Units 06:08 WBC 10.73 (4.8-10.8) K/ul Hgb 10.0 L (12.0-16.0) g/dl Hct 37.2 (37.0-47.0) % Plt Count 325 (130-400) K/uL BMP 01/05/24 06:08 Sodium 136 Potassium 3.5 Chloride 106 Carbon Dioxide 22 BUN 9 Creatinine 0.45 L Glucose 108 H Calcium 8.9 Urine 01/04/24 Range/Units 21:40 Urine Color Yellow Urine Appearance Clear (Clear) Urine pH 7.0 (4.5-7.5) Ur Specific [place] 1.006 (1.000-1.030) Urine Protein Negative (Negative) Urine Glucose (UA) Negative (Negative) Medications Administered Home Medications Medication Instructions Recorded Confirmed Last Taken ascorbic acid (vitamin C) 250 mg 0 mg PO DAILY 01/03/24 01/03/24 Unknown tablet (Vitamin C) Active Medications Generic Name Dose Route Start Last Admin Trade Name Yasmanyq PRN Reason Stop Dose Admin Iron Sucrose 300 mg/ Sodium 265 mls @ 176.667 mls/hr 01/04/24 09:15 01/04/24 11:21 Chloride IV 01/07/24 09:14 Infused DAILY ZOEY Infusion (2) Iron deficiency anemia Iron deficiency anemia type: chronic blood loss Qualified Code(s): D50.0 - Iron deficiency anemia secondary to blood loss (chronic)
[2024-01-06 06:00] LABS: Hemoglobin 9.4 g/dl (12.0-16.0); Mean Corpuscular Hemoglobin 16.9 pg (25.0-34.0); Mean Corpuscular Hgb Conc 26.9 g/dL (32.0-36.0); Mean Corpuscular Volume 62.8 fL (80.0-100.0); Nucleated RBC # (auto) 0.03 K/uL (0.00-0.12); Nucleated RBC % (auto) 0.3 %; Platelet Count 308 K/uL (130-400); RDW Coefficient of Variation 25.7 % (11.5-14.5); RDW Standard Deviation 49.1 fL (36.4-46.3); Red Blood Count 5.57 M/uL (4.20-5.40); White Blood Count 10.84 K/ul (4.8-10.8)
--- NOTE | 2024-01-06 09:35 | Discharge Summary ---
Discharge Summary Date of Service January 06, 2024 Notes For Next Care Provider s/p 900mg venofer IV 2 Units of PRBCs Hgb 6 on admission, 9.4 on discharge Medication Changes From Visit Start iron 325mg by mouth daily Admission HPI Per Admitting Provider Patricia Do is a 43yo Malaysian-speaking F with no significant PMH who presented to the ED via referral by [facility] for evaluation of new- onset severe anemia discovered on CBC results, which was performed yesterday by the clinic (Hgb of 6). History obtained from the patient, who is accompanied by her , and available records in [place]; legal assistant was utilized for the entire gathering of information. Patient states that she was called and instructed to report to the ED today since her Hgb result from the clinic was significantly low, thus warranting further investigation. Patient reports that she has been experiencing pain in her lower right abdominal quadrant for the past approximately 2-3 months. Patient reports that the pain is fleeting, and tends to come and go in waves. She describes the pain in her lower right abdominal quadrant as more of a dull sensation typically, but has experienced times when the pain tends to become sharp in intensity whilst urinating. Patient states that she does not feel this specific abdominal pain every time she urinates, only once in a while it will occur. Patient denies any hematuria, burning sensation whilst urinating or changes in urinary habits. Patient did allude to pain in her right flank region that also occurs intermittently, sometimes occurring the same time as the lower right quadrant abdominal pain. Patient describes the flank pain as dull/achy in quality. Patient denies being prescribed any medications to alleviate either sources of pain. She does report occasional nausea and constipation, but denies taking any OTC or prescription medications for these concerns at home. Patient denies any episodes of vomiting, diarrhea, or hematochezia. Patient reports that she is currently not taking any forms of hormonal control, and denies any significant changes in the flow/frequency of her menstrual cycles. Patient reports using approximately 10- 12 pads/day when she is menstruating; however, she denies any abnormal vaginal bleeding or any active source of bleeding at this time. Patient denies any fevers, body chills/aches, recent illnesses, generalized weakness and fatigue. Admission Exam Per Admitting Provider General Appearance: WD/WN, vitals as above, NAD, sitting up in bed, pleasant, conversing easily with assistance of legal assistant. Head: Normocephalic, atraumatic Eyes: Normal inspection, PERRL, conjunctivae normal, anicteric sclerae ENT: External ear and nose normal, oropharynx normal Neck: Normal visual inspection, trachea midline, no thyromegaly Respiratory: Normal respiratory effort, lungs clear to auscultation, no wheeze, rales, rhonchi. No accessory muscle use. Cardiovascular: Regular rate, rhythm, no murmur, normal peripheral pulses, no BLE edema. Vessels: No JVD Chest: Normal inspection of chest Abdomen/GI: Normal bowel sounds, soft, nontender, no hepatosplenomegaly Extremities/Musculoskeletal: No cyanosis or clubbing, extremities motor strength 5/5 Neurologic: PERRL, EOMI, accommodation nl, no face palsy, no dysarthria, CN's II-XI intact bilaterally and moves all extremities Psychiatric: A+Ox3, euthymic affect Skin: No rashes, normal color, warm/dry Principal Dx & Hospital Course #1 = Principal Diagnosis (1) Severe anemia: (2) Iron deficiency anemia: (3) Right lower quadrant abdominal pain: Plan Ms. Do is a 43 year old woman with no medical history admitted for acute anemia though to be secondary to menorrhagia due to fibroids. OP labs notable for hgb of 6, which was confirmed on admission labs with a hgb 6.9 Patient underwent transfusion in ED with hgb up to 8.9 on 01/03--now improving to 10 this morning. Anemia studies revealed severe iron deficiency anemia, patient completed 3/3 iron infusions and discharged home on oral iron Patient evaluated with bedside ipad optical fabrication technician service. All questions answered. Patient eating well, ambulating without difficulty, and eager for discharge. #Severe microcytic anemia, likely from iron deficiency #Acute blood loss anemia 2/[address] of abdomen/pelvis performed in the ED revealed 3 similar-looking uterine masses, favoring fibroids. 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 Discharge Exam Constitutional WD/WN, vitals as above Respiratory normal respiratory effort, lungs clear to auscultation Gastrointestinal (Abdomen) normal bowel sounds, soft, nontender, no hepatosplenomegaly Musculoskeletal no cyanosis or clubbing, extremities motor strength 5/5 Updated Medication List Medication Instructions Recorded Confirmed Type ascorbic acid (vitamin C) 250 mg 0 mg PO DAILY 01/03/24 01/03/24 History tablet (Vitamin C) ferrous sulfate 325 mg (65 mg 325 mg PO DAILY #30 tabs 01/06/24 Rx iron) tablet (FeroSul) Hospital Stay Data Consultations 01/03/24 15:34 ED Decision to Admit Stat 01/03/24 15:37 Consult Gynecology Routine 01/04/24 09:08 Consult Hematology Routine Diagnostic Imagining Performed 01/03/24 14:12 CT Abd and Pelvis [CT abd pelvis IV con only] Stat 01/03/24 15:06 US Pelvis [US pelvic complete] Stat Pending Results Patient Have Any Pending Studies at Discharge: No Discharge Instructions Given to Patient (Per Discharging Provider) You were noted to have a low blood level. This is due to heavy menstrual bleeding from fibroids and very low iron. You received two units of blood transfusion and three iron infusions. Please continue to take a daily iron supplement to help keep up your iron store. Please follow up with your music composition teacher for discussion of fibroid removal. Se observ que usted michela un nivel bajo en siena. [place] se debe al sangrado menstrual abundante debido a los fibromas y al nivel muy bajo de cristopher. Recibiste dos unidades de transfusin de siena y clement infusiones de cristopher. Contine tomando un suplemento de cristopher diario para ayudar a mantener yanet reservas de cristopher. Jaymie un seguimiento con calvert gineclogo para hablar sobre la extirpacin de fibromas. Total Time Total Time Spent Total Time Spent (In Minutes): 35
== END 2024-01-06 11:08 | disposition home or self-care (01) | DRG 812 ==
LOC: ED 10:13 → SUATTDRO 15:37 → EDINP 15:37 → 2N 21:28
DX: D25.0 Submucous leiomyoma of uterus; Z60.3 Acculturation difficulty; Z83.2 Family history of diseases of the blood and blood-forming organs and certain disorders involving the immune mechanism; N92.0 Excessive and frequent menstruation with regular cycle; D62 Acute posthemorrhagic anemia